=== PATIENT | male | born 1970 | race Caucasian/White ===

== ENCOUNTER 2021-05-23 21:00 | Emergency (ER) | payer MEDICAID ==
[~2021-05-23] VITALS: Ht 182.9 cm; Wt 72.7 kg
[2021-05-23 21:41] LABS: GLUCOMETER DEV NAME(LOC) ERT.5; GLUCOSE,POINT OF CARE 82 MG/DL (70-110)
[2021-05-23 22:04] LABS: BASOPHILS % (AUTO) 1.3 % (0.0-2.0); EOSINOPHILS % (AUTO) 7.3 % (1.0-6.0); HEMATOCRIT 44.1 % (41-53); HEMOGLOBIN 14.4 g/dL (13.5-17.5); LYMPHOCYTES # (AUTO) 2.8 K/uL (1.0-4.8); LYMPHOCYTES % (AUTO) 27.5 % (22.0-44.0); MEAN CORPUSCULAR HEMOGLOBIN 25.4 pg (26.0-34.0); MEAN CORPUSCULAR HGB CONC 32.6 G/dL (31.0-37.0); MEAN CORPUSCULAR VOLUME 78 fL (80-100); MONOCYTES # (AUTO) 0.8 K/uL (0.1-1.0); MONOCYTES % (AUTO) 7.9 % (2.0-9.0); NEUTROPHILS # (AUTO) 5.7 K/uL (1.8-7.7); PLATELET COUNT (AUTO) 261 K/uL (150-450); RED BLOOD CELL COUNT(AUTO) 5.66 MIL/uL (4.50-5.90); RED CELL DISTRIBUTION WIDTH 16.9 % (11.5-14.5)
[2021-05-23 22:15] LABS: APPEARANCE,URINE CLEAR (CLEAR); BILIRUBIN,URINE NEGATIVE (NEGATIVE); GLUCOSE, URINE (UA) NEGATIVE (NEGATIVE); KETONES,URINE NEGATIVE (NEGATIVE); LEUKOCYTE ESTERASE ,URINE NEGATIVE (NEGATIVE); NITRATE,URINE NEGATIVE (NEGATIVE); OCCULT BLOOD,URINE SMALL (NEGATIVE); PH,URINE 6.5 (5.0-8.0); PROTEIN,URINE 30-70 mg/dL (NEGATIVE); SPECIFIC GRAVITIY, URINE 1.011 (1.003-1.030); UROBILINOGEN,URINE <=1.0 mg/dL (<=1.0)
[2021-05-23 22:18] LABS: AMPHET/METH SCREEN,URINE POSITIVE (NEGATIVE); BARBITURATE SCREEN, URINE NEGATIVE (NEGATIVE); BENZODIAZEPINES SCREEN,URINE NEGATIVE (NEGATIVE); CANNABINOID SCREEN,URINE NEGATIVE (NEGATIVE); COCAINE SCREEN,URINE NEGATIVE (NEGATIVE); METHADONE SCREEN, URINE NEGATIVE (NEGATIVE); OPIATE SCREEN,URINE NEGATIVE (NEGATIVE)
[2021-05-23 22:29] LABS: PHENCYCLIDINE SCREEN,URINE NEGATIVE (NEGATIVE)
[2021-05-23] MEDS ORDERED: SODIUM CHLORIDE 0.9% 1,000 ML IV ONE (23:00)
[2021-05-23 23:06] LABS: INR 1.1 (0.9-1.1)
[2021-05-23 23:57] LABS: RBC,URINE 0-2 /HPF (0-2); WBC,URINE 0-2 /HPF (0-5)
[2021-05-23 23:58] LABS: BACTERIA,URINE Rare /HPF (None Seen); SQUAMOUS EPITHELIAL CELL,UR Rare /LPF (None Seen)
[2021-05-23 23:59] LABS: ANION GAP 14 mmol/L (8-16); CALCIUM, TOTAL 9.4 mg/dL (8.8-10.5); CARBON DIOXIDE 24 mmol/L (22-29); CHLORIDE 102 mmol/L (98-107); CREATININE 2.26 mg/dL (0.60-1.30); GLOMERULAR FILTR. RATE CALC 31 mL/min (>60); GLUCOSE,RANDOM 85 mg/dL (70-110); POTASSIUM 4.3 mmol/L (3.5-5.1); SODIUM SERUM 140 mmol/L (136-145); UREA NITROGEN, BLOOD 30 mg/dL (7-18)
[2021-05-24 00:06] LABS: AMMONIA 20 umol/L (11-32)
[2021-05-24 00:55] LABS: ALANINE AMINOTRANSFERASE 21 U/L (12-78); ALBUMIN 3.6 g/dL (3.4-5.0); ALKALINE PHOSPHATASE 95 U/L (46-116); ASPARTATE AMINOTRANSFERASE 23 U/L (15-37); BILIRUBIN,TOTAL 1.6 mg/dL (0.1-1.0); CREATINE KINASE, TOTAL ONLY 184 U/L (39-308); TOTAL PROTEIN, SERUM 7.4 g/dL (6.4-8.2)
[2021-05-24 03:06] VITALS: BP 141/89
== END 2021-05-24 03:57 | disposition home or self-care (01) ==
LOC: EMS 21:00
DX: F15.921 Other stimulant use, unspecified with intoxication delirium (principal); E86.0 Dehydration
CPT/HCPCS: 36415; 70450; 71045; 80053; 80307; 81001; 82140; 82550; 82962; 83605; 84484; 85025; 85610; 85730; 87040; 93005; 96360; 99285; G0480

== ENCOUNTER 2022-06-03 12:55 | Inpatient (IN) | payer MEDICARE ==
[~2022-06-03] VITALS: Ht 182.9 cm; Wt 89.8 kg
[2022-06-03] MEDS ORDERED: HALOPERIDOL 5 MG TABLET PO PRN (13:45)
[2022-06-03] MEDS ORDERED: ZOLPIDEM TARTRATE 10 MG TABLET PO PRN (13:45)
[2022-06-03 14:50] VITALS: BP 144/98
[2022-06-03] MEDS: LORazepam 2 MG TABLET PO PRN (15:09)
[2022-06-03] MEDS ORDERED: PNEUMOCOCCAL VACCINE POLYVALENT 0.5 ML VIAL [PPSV23] IM. ONE (15:45)
[2022-06-03] MEDS ORDERED: DOCUSATE SODIUM 100 MG CAPSULE PO PRN (17:30)
[2022-06-03] MEDS ORDERED: ACETAMINOPHEN 325 MG TABLET PO PRN (17:30)
[2022-06-03] MEDS ORDERED: IBUPROFEN 600 MG TABLET PO PRN (17:30)
[2022-06-03] MEDS ORDERED: BACITRACIN 28 GM OINTMENT TP PRN (17:30)
[2022-06-03] MEDS ORDERED: OMEPRAZOLE 20 MG CAPSULE PO PRN (17:30)
[2022-06-03] MEDS ORDERED: MAGNESIUM HYDROXIDE SUSPENSION 30 ML UDCUP PO PRN (17:30)
[2022-06-03] MEDS ORDERED: ONDANSETRON HCL 4 MG TABLET PO PRN (17:30)
[2022-06-03] MEDS ORDERED: MAG HYDROX/AL HYDROX/SIMETH ES 30 ML SUSPENSION UDCUP PO PRN (17:30)
[2022-06-03] MEDS ORDERED: PETROLATUM,WHITE 28 GM JELLY TP PRN (17:30)
[2022-06-03] MEDS ORDERED: CloNIDine HCL 0.1 MG TABLET PO PRN (17:30)
[2022-06-03] MEDS ORDERED: ALBUTEROL SULFATE HFA 90 MCG/PUFF 8 GM INHALER IH PRN (17:30)
[2022-06-03] MEDS: GABAPENTIN 300 MG CAPSULE PO SCH (18:23)
[2022-06-03] MEDS: AmLODIPine BESYLATE 5 MG TABLET PO SCH (18:23)
[2022-06-03] MEDS: LISINOPRIL 10 MG TABLET PO SCH (18:23)
[2022-06-03 20:02] VITALS: BP 133/88
[2022-06-04] MEDS: LORazepam 2 MG TABLET PO PRN ×3 (06:55→21:08)
[2022-06-04 08:10] VITALS: BP 136/91
[2022-06-04 08:19] LABS: BASOPHILS % (AUTO) 1.1 % (0.0-2.0); EOSINOPHILS % (AUTO) 11.6 % (1.0-6.0); HEMATOCRIT 41.3 % (41-53); HEMOGLOBIN 13.4 g/dL (13.5-17.5); LYMPHOCYTES # (AUTO) 2.1 K/uL (1.0-4.8); LYMPHOCYTES % (AUTO) 32.1 % (22.0-44.0); MEAN CORPUSCULAR HEMOGLOBIN 26.5 pg (26.0-34.0); MEAN CORPUSCULAR HGB CONC 32.6 G/dL (31.0-37.0); MEAN CORPUSCULAR VOLUME 81 fL (80-100); MONOCYTES # (AUTO) 0.7 K/uL (0.1-1.0); MONOCYTES % (AUTO) 10.4 % (2.0-9.0); NEUTROPHILS % (AUTO) 44.8 % (40.0-70.0); PLATELET COUNT (AUTO) 200 K/uL (150-450); RED BLOOD CELL COUNT(AUTO) 5.08 MIL/uL (4.50-5.90); RED CELL DISTRIBUTION WIDTH 17.6 % (11.5-14.5)
[2022-06-04 08:28] LABS: HEMOGLOBIN A1C 5.4 % (3.8-5.6)
[2022-06-04 08:54] LABS: ALANINE AMINOTRANSFERASE 22 U/L (12-78); ALBUMIN 3.3 g/dL (3.4-5.0); ALKALINE PHOSPHATASE 71 U/L (46-116); ANION GAP 13 mmol/L (8-16); ASPARTATE AMINOTRANSFERASE 27 U/L (15-37); BILIRUBIN,TOTAL 0.3 mg/dL (0.1-1.0); CALCIUM, TOTAL 8.4 mg/dL (8.8-10.5); CARBON DIOXIDE 20 mmol/L (22-29); CHLORIDE 106 mmol/L (98-107); CHOLESTEROL 132 mg/dL (131-200); CREATININE 2.48 mg/dL (0.60-1.30); FREE T4 (FREE THYROXINE) 0.83 ng/dL (0.76-1.46); GLOMERULAR FILTR. RATE CALC 28 mL/min (>60); GLUCOSE,RANDOM 85 mg/dL (70-110); HDL CHOLESTEROL 33 mg/dL (40-60); LDL CHOL (CALC.) 75 mg/dL (0-130); POTASSIUM 4.5 mmol/L (3.5-5.1); SODIUM SERUM 139 mmol/L (136-145); THYROID STIMULATING HORMONE 2.19 uIU/mL (0.36-3.74); TOTAL PROTEIN, SERUM 7.5 g/dL (6.4-8.2); TRIGLYCERIDES 118 mg/dL (15-150); UREA NITROGEN, BLOOD 69 mg/dL (7-18); VALPROIC ACID 5 mcg/mL (50-100)
[2022-06-04] MEDS: GABAPENTIN 300 MG CAPSULE PO SCH ×3 (09:36→17:24)
[2022-06-04] MEDS: LISINOPRIL 10 MG TABLET PO SCH (09:36)
[2022-06-04] MEDS: NICOTINE 21 MG/24 HOUR PATCH TD SCH (09:37)
[2022-06-04] MEDS: AmLODIPine BESYLATE 5 MG TABLET PO SCH (09:55)
[2022-06-04 20:14] VITALS: BP 120/70
[2022-06-04] MEDS: DIVALPROEX SODIUM 500 MG DR TABLET PO SCH (20:22)
[2022-06-04] MEDS: OLANZapine 10 MG TABLET PO SCH (20:22)
[2022-06-05 07:41] LABS: APPEARANCE,URINE CLEAR (CLEAR); BILIRUBIN,URINE NEGATIVE (NEGATIVE); GLUCOSE, URINE (UA) NEGATIVE (NEGATIVE); KETONES,URINE NEGATIVE (NEGATIVE); LEUKOCYTE ESTERASE ,URINE NEGATIVE (NEGATIVE); NITRATE,URINE NEGATIVE (NEGATIVE); OCCULT BLOOD,URINE NEGATIVE (NEGATIVE); PROTEIN,URINE TRACE mg/dL (NEGATIVE); SPECIFIC GRAVITIY, URINE 1.012 (1.003-1.030); UROBILINOGEN,URINE <=1.0 mg/dL (<=1.0)
[2022-06-05 07:47] LABS: AMPHET/METH SCREEN,URINE NEGATIVE (NEGATIVE); BARBITURATE SCREEN, URINE NEGATIVE (NEGATIVE); BENZODIAZEPINES SCREEN,URINE NEGATIVE (NEGATIVE); CANNABINOID SCREEN,URINE NEGATIVE (NEGATIVE); COCAINE SCREEN,URINE NEGATIVE (NEGATIVE); METHADONE SCREEN, URINE NEGATIVE (NEGATIVE); OPIATE SCREEN,URINE NEGATIVE (NEGATIVE); PHENCYCLIDINE SCREEN,URINE NEGATIVE (NEGATIVE)
[2022-06-05 08:08] VITALS: BP 106/64
[2022-06-05] MEDS: AmLODIPine BESYLATE 5 MG TABLET PO SCH (08:45)
[2022-06-05] MEDS: DIVALPROEX SODIUM 500 MG DR TABLET PO SCH ×2 (08:45→20:16)
[2022-06-05] MEDS: LISINOPRIL 10 MG TABLET PO SCH (08:45)
[2022-06-05] MEDS: GABAPENTIN 300 MG CAPSULE PO SCH ×3 (08:45→17:12)
[2022-06-05] MEDS: NICOTINE 21 MG/24 HOUR PATCH TD SCH (08:47)
[2022-06-05] MEDS: LORazepam 2 MG TABLET PO PRN ×2 (13:35→21:49)
[2022-06-05 20:00] VITALS: BP 126/87
[2022-06-05] MEDS: OLANZapine 10 MG TABLET PO SCH (20:16)
[2022-06-06 08:04] VITALS: BP 112/76
[2022-06-06] MEDS: LISINOPRIL 10 MG TABLET PO SCH (08:45)
[2022-06-06] MEDS: DIVALPROEX SODIUM 500 MG DR TABLET PO SCH ×2 (08:45→20:31)
[2022-06-06] MEDS: GABAPENTIN 300 MG CAPSULE PO SCH ×3 (08:45→16:50)
[2022-06-06] MEDS: AmLODIPine BESYLATE 5 MG TABLET PO SCH (08:45)
[2022-06-06] MEDS: NICOTINE 21 MG/24 HOUR PATCH TD SCH (08:46)
[2022-06-06] MEDS: LORazepam 2 MG TABLET PO PRN ×2 (12:11→18:53)
[2022-06-06 20:01] VITALS: BP 133/82
[2022-06-06] MEDS: OLANZapine 10 MG TABLET PO SCH (20:31)
[2022-06-07 08:02] VITALS: BP 118/72
[2022-06-07] MEDS: GABAPENTIN 300 MG CAPSULE PO SCH ×3 (08:16→16:01)
[2022-06-07] MEDS: DIVALPROEX SODIUM 500 MG DR TABLET PO SCH ×2 (08:16→20:16)
[2022-06-07] MEDS: AmLODIPine BESYLATE 5 MG TABLET PO SCH (08:16)
[2022-06-07] MEDS: LORazepam 2 MG TABLET PO PRN ×2 (08:16→16:01)
[2022-06-07] MEDS: LISINOPRIL 10 MG TABLET PO SCH (08:16)
[2022-06-07] MEDS: NICOTINE 21 MG/24 HOUR PATCH TD SCH (08:18)
[2022-06-07] MEDS: OLANZapine 10 MG TABLET PO SCH (20:16)
[2022-06-08 07:08] VITALS: BP 126/87
[2022-06-08] MEDS: AmLODIPine BESYLATE 5 MG TABLET PO SCH (09:30)
[2022-06-08] MEDS: GABAPENTIN 300 MG CAPSULE PO SCH ×3 (09:30→16:22)
[2022-06-08] MEDS: DIVALPROEX SODIUM 500 MG DR TABLET PO SCH ×2 (09:30→20:39)
[2022-06-08] MEDS: LISINOPRIL 10 MG TABLET PO SCH (09:30)
[2022-06-08] MEDS: NICOTINE 21 MG/24 HOUR PATCH TD SCH (09:31)
[2022-06-08 10:11] LABS: GLUCOMETER DEV NAME(LOC) POC.BV
[2022-06-08] MEDS: LOPERAMIDE HCL 2 MG CAPSULE PO PRN (10:43)
[2022-06-08] MEDS: LORazepam 2 MG TABLET PO PRN ×3 (10:53→20:31)
[2022-06-08] MEDS ORDERED: DIVA-112 PO (14:52)
[2022-06-08] MEDS ORDERED: GABA-1181 PO (14:52)
[2022-06-08 20:08] VITALS: BP 127/85
[2022-06-08] MEDS: OLANZapine 10 MG TABLET PO SCH (20:39)
[2022-06-09 08:05] VITALS: BP 128/72
[2022-06-09] MEDS: GABAPENTIN 300 MG CAPSULE PO SCH ×3 (08:34→16:56)
[2022-06-09] MEDS: NICOTINE 21 MG/24 HOUR PATCH TD SCH (08:34)
[2022-06-09] MEDS: DIVALPROEX SODIUM 500 MG DR TABLET PO SCH ×2 (08:35→20:34)
[2022-06-09] MEDS: LISINOPRIL 10 MG TABLET PO SCH (08:35)
[2022-06-09] MEDS: AmLODIPine BESYLATE 5 MG TABLET PO SCH (08:35)
[2022-06-09] MEDS: LOPERAMIDE HCL 2 MG CAPSULE PO PRN (11:31)
[2022-06-09] MEDS: LORazepam 2 MG TABLET PO PRN ×2 (12:30→19:56)
[2022-06-09 20:08] VITALS: BP 110/81
[2022-06-09] MEDS: OLANZapine 10 MG TABLET PO SCH (20:34)
[2022-06-10 08:14] VITALS: BP 130/80
[2022-06-10] MEDS: AmLODIPine BESYLATE 5 MG TABLET PO SCH (08:27)
[2022-06-10] MEDS: GABAPENTIN 300 MG CAPSULE PO SCH ×3 (08:27→16:21)
[2022-06-10] MEDS: LISINOPRIL 10 MG TABLET PO SCH (08:27)
[2022-06-10] MEDS: DIVALPROEX SODIUM 500 MG DR TABLET PO SCH (08:27)
[2022-06-10] MEDS: NICOTINE 21 MG/24 HOUR PATCH TD SCH (08:28)
[2022-06-10] MEDS: LORazepam 2 MG TABLET PO PRN (12:00)
[2022-06-10] MEDS: LOPERAMIDE HCL 2 MG CAPSULE PO PRN (17:40)
[2022-06-10] MEDS ORDERED: OLAN10 PO (18:07)
[2022-06-10] MEDS ORDERED: DIVA-112 PO (18:13)
== END 2022-06-10 18:20 | disposition home or self-care (01) | DRG 885 ==
LOC: B2X 14:07
PROVIDERS: ADMIT Psychiatry & Neurology Psychiatry; ATTEND Psychiatry & Neurology Psychiatry
DX: F25.9 Schizoaffective disorder, unspecified (principal); N17.9 Acute kidney failure, unspecified; N18.9 Chronic kidney disease, unspecified; R45.851 Suicidal ideations; F15.10 Other stimulant abuse, uncomplicated; I12.9 Hypertensive chronic kidney disease with stage 1 through stage 4 chronic kidney disease, or unspecified chronic kidney disease; G47.00 Insomnia, unspecified; F41.9 Anxiety disorder, unspecified; I25.10 Atherosclerotic heart disease of native coronary artery without angina pectoris; K59.00 Constipation, unspecified; Z86.73 Personal history of transient ischemic attack (TIA), and cerebral infarction without residual deficits; Z20.822 Contact with and (suspected) exposure to COVID-19
CPT/HCPCS: 80053; 80061; 80164; 80307; 81003; 83036; 84436; 84439; 84443; 85025; 86592; 99285; G0480